=== PATIENT | male | born 1965 | race Caucasian/White ===

== ENCOUNTER 2016-10-29 09:57 | Emergency (ER) | payer BC ==
[2016-10-29 10:07] VITALS: BP 178/112; PULSE 99; RESP 16; TEMP 98; O2SAT 100; BMI 39.9
[2016-10-29] MEDS ORDERED: Lidocaine 1% w Epi 1:100,000 Inj IJ STA (10:26)
[2016-10-29] MEDS ORDERED: Lidocaine 2% w Epi 1:100,000 Inj IJ ONE (10:48)
[2016-10-29] MEDS ORDERED: Povidone Iodine Oint 10% Foilpak UD ONE (10:49)
--- NOTE | 2016-10-29 11:25 | ED PDOC ---
HPI: General Adult Time Seen by Provider: 10/29/16 10:18 Chief Complaint (Nursing): Abnormal Skin Integrity Chief Complaint (Provider): Abscess - Right upper back x 3 weeks History Per: Patient History/Exam Limitations: no limitations Onset/Duration Of Symptoms: Days Have you had recent travel within the past 21 days to any of the following countries: [place], [place], [place] or [place]?: No Current Symptoms Are (Timing): Still Present Severity: Moderate Pain Scale Rating Of: 5 Additional Complaint(s): Pt states he has had an abscess there is the past. States his PMD given him antibiotics for 3 weeks and it went away. Pt states that it returned 3 weeks ago and is getting more painful. Pt states he has also had an abscess on his back in a different location which was drained in the past. No fever/chills. Past Medical History Reviewed: Historical Data, Nursing Documentation, Vital Signs Vital Signs: Last Vital Signs Temp 98.0 F 10/29/16 10:06 Pulse 99 H 10/29/16 10:06 Resp 16 10/29/16 10:06 BP 178/112 H 10/29/16 10:06 Pulse Ox 100 10/29/16 10:06 - Medical History PMH: No Chronic Diseases - Surgical History Surgical History: No Surg Hx - Family History Family History: States: No Known Family Hx - Living Arrangements Living Arrangements: With Family - Social History Current smoker - smoking cessation education provided: Yes - Home Medications Home Medications: Ambulatory Orders Medication Instructions Recorded Aspirin [Ecotrin] 325 mg PO DAILY 10/29/16 Sulfamethoxazole/Trimethoprim 1 each PO BID #20 tablet 10/29/16 [Bactrim 400-80 mg Tablet] - Allergies Allergies/Adverse Reactions: Allergies Allergy/AdvReac Type Severity Reaction Status Date / Time No Known Allergies Allergy Verified 10/29/16 10:11 Review of Systems ROS Statement: Except As Marked, All Systems Reviewed And Found Negative Skin: Negative for: Other Physical Exam - Reviewed Nursing Documentation Reviewed: Yes Vital Signs Reviewed: Yes - Physical Exam Appears: Positive for: Well, Non-toxic, No Acute Distress Head Exam: Positive for: ATRAUMATIC, NORMAL INSPECTION, NORMOCEPHALIC Skin: Positive for: Warm. Negative for: Normal Color ((+) fluctulant abscess on the right upper back, approx 3cm in diameter, localized erythema ) Eye Exam: Positive for: Normal appearance ENT: Positive for: Normal ENT Inspection Neck: Positive for: Normal, Painless ROM Respiratory: Negative for: Accessory Muscle Use Back: Positive for: Normal Inspection Extremity: Positive for: Normal ROM. Negative for: Tenderness Neurologic/Psych: Positive for: Alert, Oriented - ECG O2 Sat by Pulse Oximetry: 100 Medical Decision Making Medical Decision Making: BP re-check by technical document writer prior to discharge - 154/92 Discussed the importance of f.u with PMD. Pt states he is due for his yearly appointment. Procedures - Time-Out Type of Procedure: I and D Correct Patient (with visual ID + MR# on ID Band): Yes Correct Procedure: Yes Correct Site Marked: Yes Medication Reconciliation / Bloodwork / Allergies Checked: No PA/Tech: Jodee ASKEW-C - Incision and Drainage Blade Size: 11 I & D Procedure: betadine prep, sterile drapes applied, sterile dressing applied , gauze wick placed Disposition - Clinical Impression Clinical Impression: Abscess - Patient ED Disposition Is Patient to be Admitted: No Counseled Patient/Family Regarding: Diagnosis, Need For Followup, Rx Given - Disposition Referrals: [facility] [Outside] Disposition: Routine/Home Disposition Time: 11:23 Condition: GOOD Prescriptions: Sulfamethoxazole/Trimethoprim [Bactrim 400-80 mg Tablet] 1 each PO BID #20 tablet Instructions: Abscess (ED) Forms: [facility] ED School/Work Excuse
== END 2016-10-29 11:35 | disposition home or self-care (01) ==
LOC: H.ER 09:57
DX: L02.212 Cutaneous abscess of back [any part, except buttock and flank] (principal)